=== PATIENT | female | born 1930 | race Native Hawaiian/Other Pacific Islander ===

== ENCOUNTER 2020-06-23 09:23 | Emergency (ER) | payer OTHER, MEDICARE ==
[~2020-06-23] VITALS: Ht 160 cm; Wt 62.1 kg
[2020-06-23 09:41] VITALS: BP 150/74; TEMP 98.1
[2020-06-23 10:12] LABS: PLATELET COUNT 177 K/uL (152-353)
[2020-06-23] MEDS ORDERED: LIPITOR20 MG PO (13:52)
[2020-06-23] MEDS ORDERED: [UNRECOGNIZED DRUG - CODE] PO (13:54)
[2020-06-23] MEDS ORDERED: CALCIUM 600600 MG PO (13:56)
[2020-06-23] MEDS ORDERED: CELECOXIB100 MG PO (13:59)
[2020-06-23] MEDS ORDERED: DICLOFENAC SODIUM1 % TD (14:01)
[2020-06-23] MEDS ORDERED: DOXEPIN PO (14:05)
[2020-06-23] MEDS ORDERED: DOXEPIN HCL 10 MG/ML PO (14:06)
[2020-06-23] MEDS ORDERED: NAMENDA5 MG PO (14:08)
[2020-06-23] MEDS ORDERED: MUPIROCIN2 % EX (14:13)
[2020-06-23] MEDS ORDERED: ONDANSETRON4 M2 PO (14:16)
[2020-06-23] MEDS ORDERED: QUETIAPINE FUM300 MG PO (14:17)
[2020-06-23] MEDS ORDERED: QUETIAPINE50 MG PO (14:21)
[2020-06-23] MEDS ORDERED: EXELON9.5 MG/24 TOP (14:26)
[2020-07-09] MEDS ORDERED: EXELON9.5 MG/24 TOP (09:11)
[2020-07-09] MEDS ORDERED: MEMA5TAB PO (09:12)
[2020-07-09] MEDS ORDERED: ESCI10TA PO (09:12)
[2020-07-09] MEDS ORDERED: CELE100C2 PO (09:12)
[2020-07-09] MEDS ORDERED: OLAN2.5T2 PO (09:12)
[2020-07-09] MEDS ORDERED: MELATONIN MAXIMU5 MG PO (09:12)
[2020-07-09] MEDS ORDERED: ACET-206 PO (09:13)
[2020-07-09] MEDS ORDERED: BISO5TAB2 PO (09:13)
[2020-07-09] MEDS ORDERED: ATOR20TA2 PO (09:13)
== END 2020-06-23 11:35 | disposition other institution (70) ==
LOC: ED 09:23
PROVIDERS: Family Medicine
DX: F03.91 Unspecified dementia, unspecified severity, with behavioral disturbance (principal); Z11.59 Encounter for screening for other viral diseases; Z04.6 Encounter for general psychiatric examination, requested by authority
CPT/HCPCS: 36415; 80053; 80320; 85027; 87635; 93005; 99285; U0003